=== PATIENT | male | born 1990 | race Caucasian/White ===

== ENCOUNTER 2016-03-08 22:59 | Emergency (ER) | payer OTHER ==
[~2016-03-08] VITALS: Ht 177.8 cm; Wt 69.6 kg
[~2016-03-08 22:59] MED LIST: AMOXICILLIN500 M1 PO; AMOXICILLIN875 MG PO; FLEXERIL10 MG PO; FLONASE16 G1 BOTH NARES; HYDROXYZINE HCL25 MG PO; MOTRIN800 MG PO; MUCINEX D ER T1 EACH PO; NAPROSYN500 MG PO; NOHOMEMEDS; NORCO 5/3251 TABLET PO; PEN-VEE K,VEET500 MG PO; PREDNISONE20 MG PO; TESSALON PERLE100 MG PO; TRAMADOL HCL50 MG PO; ZITHROMAX500 MG PO; no home meds
[2016-03-08] MEDS ORDERED: CLOTRIMAZOLE10 MG PO (23:33)
[2016-03-08] MEDS ORDERED: PEN-VEE K,VEET500 MG PO (23:33)
[2016-03-08] MEDS ORDERED: NORCO 5/3251 TABLET PO (23:33)
[2016-03-09 00:21] VITALS: BP 142/81
== END 2016-03-09 00:21 | disposition home or self-care (01) ==
LOC: EXP 22:59 → EME 22:59 → EXP 03-09 00:21
DX: K08.89 Other specified disorders of teeth and supporting structures (principal); B37.0 Candidal stomatitis
CPT/HCPCS: 99281; 99283

== ENCOUNTER 2016-05-12 07:18 | Emergency (ER) | payer OTHER ==
[~2016-05-12] VITALS: Ht 177.8 cm; Wt 72.4 kg
[~2016-05-12 07:18] MED LIST changes: +CLOTRIMAZOLE10 MG PO
[2016-05-12 08:01] VITALS: BP 128/88
== END 2016-05-12 08:11 | disposition home or self-care (01) ==
LOC: EME 07:18
DX: S60.112A Contusion of left thumb with damage to nail, initial encounter (principal); W23.0XXA Caught, crushed, jammed, or pinched between moving objects, initial encounter; Y92.810 Car as the place of occurrence of the external cause
CPT/HCPCS: 73140; 99281; 99283

== ENCOUNTER 2016-06-30 23:56 | Emergency (ER) | payer OTHER ==
[~2016-06-30] VITALS: Ht 177.8 cm; Wt 72.1 kg
[2016-07-01] MEDS ORDERED: MOTRIN800 MG PO (00:32)
[2016-07-01] MEDS ORDERED: PEN-VEE K,VEET500 MG PO (00:32)
[2016-07-01 01:14] VITALS: BP 153/91
== END 2016-07-01 01:14 | disposition home or self-care (01) ==
LOC: EME 23:56
DX: K02.9 Dental caries, unspecified (principal); F17.200 Nicotine dependence, unspecified, uncomplicated
CPT/HCPCS: 99281; 99284

== ENCOUNTER 2016-09-24 20:58 | Emergency (ER) | payer OTHER ==
[~2016-09-24] VITALS: Ht 177.8 cm; Wt 73.8 kg
[2016-09-24] MEDS ORDERED: ULTRAM50 MG PO (22:11)
[2016-09-24] MEDS ORDERED: PEN-VEE K,VEET500 MG PO (22:11)
[2016-09-24 22:59] VITALS: BP 132/85
== END 2016-09-24 23:00 | disposition home or self-care (01) ==
LOC: EME 20:58
PROC: 3E0T3BZ Introduction of Anesthetic Agent into Peripheral Nerves and Plexi, Percutaneous Approach (ICD-10-PCS; principal; 2016-09-24)
DX: K08.89 Other specified disorders of teeth and supporting structures (principal); K03.81 Cracked tooth
CPT/HCPCS: 99281; 99283

== ENCOUNTER 2017-05-22 20:44 | Emergency (ER) | payer OTHER ==
[~2017-05-22] VITALS: Ht 177.8 cm; Wt 80.9 kg
[~2017-05-22 20:44] MED LIST changes: +ULTRAM50 MG PO
[2017-05-22 21:00] VITALS: BP 148/117
[2017-05-23] MEDS ORDERED: IBUPROFEN800 MG PO (15:23)
[2017-05-23] MEDS ORDERED: FLEXERIL10 MG PO (15:23)
== END 2017-05-22 22:40 | disposition left against medical advice (07) ==
LOC: EME 20:44
DX: Z53.21 Procedure and treatment not carried out due to patient leaving prior to being seen by health care provider (principal)

== ENCOUNTER 2017-05-23 14:13 | Emergency (ER) | payer OTHER ==
[~2017-05-23] VITALS: Ht 177.8 cm; Wt 80.1 kg
[2017-05-23] MEDS ORDERED: IBUPROFEN800 MG PO (15:23)
[2017-05-23] MEDS ORDERED: FLEXERIL10 MG PO (15:23)
[2017-05-23 16:40] VITALS: BP 138/81
== END 2017-05-23 16:40 | disposition home or self-care (01) ==
LOC: EME 14:13
DX: S46.911A Strain of unspecified muscle, fascia and tendon at shoulder and upper arm level, right arm, initial encounter (principal); S16.1XXA Strain of muscle, fascia and tendon at neck level, initial encounter; V43.52XA Car driver injured in collision with other type car in traffic accident, initial encounter; Y92.410 Unspecified street and highway as the place of occurrence of the external cause; F17.210 Nicotine dependence, cigarettes, uncomplicated; Z90.49 Acquired absence of other specified parts of digestive tract
CPT/HCPCS: 99281; 99284; J1885